=== PATIENT | female | born 1935 | race Caucasian/White ===

== ENCOUNTER 2019-11-24 12:19 | Outpatient (CLI) | payer MEDICARE, MEDICAID, SELFPAY ==
--- NOTE | 2019-11-24 12:20 | MM_ITS ---
WS: [id number] BILATERAL DIGITAL DIAGNOSTIC MAMMOGRAPHY WITH CAD CLINICAL INFORMATION: HX OF BREAST CA HISTORY: Diagnostic mammogram. History of right breast cancer. COMPARISON: TECHNIQUE: Bilateral CC and MLO views. FINDINGS: The breasts are composed of heterogeneous fibroglandular density tissue, which can limit the detectio n of small underlying mass lesions. A few stable punctate calcifications. No suspicious mass, asymmet ry, calcifications, or architectural distortion. No evidence of malignancy. MM/[place] [id number] IMPRESSION: BI-RADS: 2-Benign FOLLOW UP: 1 Year Follow-up Recommend return to annual diagnostic mammography.
== END 2019-11-24 12:20 | disposition home or self-care (01) ==
PROVIDERS: Family Provider Family Medicine; PCP Family Medicine; Visit Provider Family Medicine
DX: Z85.3 Personal history of malignant neoplasm of breast (principal)
CPT/HCPCS: 77066

== ENCOUNTER 2020-07-20 08:57 | Emergency (ER) | payer MEDICARE, MEDICAID, SELFPAY ==
[2020-07-20] VITALS (8 sets, daily range): BP systolic 123–140; BP diastolic 62–82; PULSE 82–108; RESP 15–27; TEMP 38.5; O2SAT 92–100; BMI 27.1
--- NOTE | 2020-07-20 09:06 | XRR_ITS ---
PROCEDURE INFORMATION: Exam: XR Chest, 1 View Exam date and time: 07/20/2020 9:17 AM Age: 85 years old Clinical indication: Dyspnea; Prior surgery; Surgery type: Stimulator; Additional info: Dyspnea, covid + TECHNIQUE: Imaging protocol: XR of the chest Views: 1 view. COMPARISON: CR Chest 1 [place] [id number] 06/16/2019 10:57 AM FINDINGS: Tubes, catheters and devices: A neurostimulator projects on the lower thoracic spine. Lungs: There are bilateral interstitial pulmonary infiltrates, greater on the left side. These have arisen since the old chest x-ray. Interstitial infiltrates are consistent with viral pneumonia. Pleural space: Unremarkable. No pleural effusion. No pneumothorax. Heart/Mediastinum: Unremarkable. No cardiomegaly. Bones/joints: Unremarkable. XR/XR chest 1V portable [id number] IMPRESSION: Bilateral interstitial pulmonary infiltrates greater on the left side consistent with a viral pneumonia.
[2020-07-20] MEDS: dexamethasone 4 mg/mL INJ 6 MG IVP (09:21)
--- NOTE | 2020-07-20 09:23 | W.ED.COVID ---
HPI - COVID General: Chief Complaint: COVID symptoms Stated Complaint: COVID+/PNE/Low O2 Time Seen by Provider: 07/20/20 09:06 Triage information: Has fever, cough or shortness of breath. Exposure to COVID + person last 14 days History of Present Illness: HPI Narrative: 85-year-old female reported to be Covid positive, having tested positive on 07/13, [facility] with [facility] and reported pneumonia. They started on dexamethasone and additionally they had added Levaquin but she is not tolerating that p.o. According to her paperwork [facility] the [facility] she has a full code. She was 88% on 6 L by nasal cannula at the [facility] and continued to having shortness of breath and increasing respiratory distress family asked that she be sent to the emergency room. MD complaint: known COVID positive Prior covid testing: yes, results known (July 13, 2020) Prior testing date: 07/13/20 COVID 19 common symptoms: positive fever(s), chills, cough, productive cough, dyspnea, fatigue, body aches, nasal congestion and vomiting COVID 19 other sytmptoms: positive requiring more oxygen and respiratory distress Onset (ago): day(s) Severity: severe Pertinent comorbid conditions: [facility] patient COVID Results: No Data to Display Review of Systems General: Reports: ROS unobtainable due to medical condition (Review of systems per EMS and [facility]iary report) Const: Reports: fever(s), chills, body aches and fatigue ENMT: Reports: nasal congestion Resp: Reports: dyspnea and productive cough GI: Reports: vomiting Physical Exam Const: COMMON NORMALS: no acute distress GENERAL APPEARANCE: cooperative and comfortable ORIENTATION/CONSCIOUSNESS: Yes awake, Yes oriented to person, Yes oriented to place and Yes oriented to time HENMT: COMMON NORMALS: normocephalic, atraumatic and hearing grossly normal bilaterally HEAD & SCALP: normocephalic and atraumatic Neck/C-Spine: COMMON NORMALS: no JVD Resp: AUSCULTATION: rhonchi and wheezes Cardio: COMMON NORMALS: no JVD and regular rhythm RATE: tachycardic RHYTHM: regular rhythm HEART SOUNDS: Murmur heart sound present systolic Intensity: II/ GI: COMMON NORMALS: Soft to palpation and No hepatosplenomegaly present AUSCULTATION: Yes normoactive bowel sounds PALPATION: Yes Soft to palpation, No Tenderness to palpation present (GI), No Guarding due to palpation present (GI) and Yes No hepatosplenomegaly present Extremity: COMMON NORMALS: normal to inspection, capillary refill normal, no clubbing, cyanosis or edema, no calf tenderness and no pedal edema Neuro: SENSORIUM/ORIENTATION: Yes oriented to person, Yes oriented to place and Yes oriented to time Skin: COMMON NORMALS: no rashes or lesions noted GENERAL SKIN EXAM: no rashes or lesions noted Course Vital Signs: Vital signs: Vital Signs Temperature 101.3 F H 07/20/20 08:58 Pulse Rate 82 07/20/20 14:31 Respiratory Rate 16 07/20/20 14:31 Blood Pressure 136/69 07/20/20 14:31 Pulse Oximetry 96 07/20/20 14:31 MDM - COVID MDM Narrative Medical decision making narrative: Acute viral pneumonitis secondary to COVID-19. We will transfer due to lack of available appropriate beds at our facility at this time we do not even have a bed available to isolate her with or without negative pressure. Discussed with receiving physician at [facility]. Patient transferred in stable condition on oxygen. Did confirm with her attending that the family does want her as a full code. Lab Data Result diagrams: 07/20/20 09:18 07/20/20 09:18 Labs: Lab Results 07/20/20 07/20/20 07/20/20 Range/Units 09:18 09:18 09:18 WBC 16.7 H (4.0-10.0) 10^3/uL RBC 4.48 (4.1-5.3) 10^6/uL Hgb 15.0 (11.5-15.3) g/dL Hct 45.3 (37.0-47.0) % MCV 101.1 H (81-99) fL MCH 33.5 (28.0-34.0) pg MCHC 33.1 (30.0-36.0) g/dL RDW 13.6 (12.1-15.1) % Plt Count 415 H (130-400) 10^3/cmm MPV 10.2 (7.4-10.4) fL Neut % (Auto) 88.5 % Lymph % (Auto) 8.0 % [place] % (Auto) 2.0 % Eos % (Auto) 0.0 % Baso % (Auto) 0.2 % Neut # (Auto) 14.75 H (1.8-7.7) 10^3/uL Lymph # (Auto) 1.3 (0.8-4.8) 10^3/uL [place] # (Auto) 0.3 (0.2-0.9) 10^3/uL Eos # (Auto) 0.0 (0.0-0.8) 10^3/uL Baso # (Auto) 0.0 (0.0-0.1) 10^3/uL Nucleated RBC % (auto) 0.1 % Nucleated RBCs # 0.0 /100WBC PT Cancelled INR Cancelled Fibrinogen Cancelled D-Dimer Cancelled Specimen Type Sample Site ABG pH (7.35-7.45) ABG pCO2 (35-45) mmHg ABG pO2 (80.0-100.0) mmHg ABG HCO3 (22-26) mmol/L ABG Base Excess (-2.0-2.0) mmol/L [place] Test Hematocrit (37-47) % O2 Delivery Device O2 Liters/Min % FiO2 % [place] ID Sodium 143 (136-145) mmol/L Potassium 3.5 (3.5-5.1) mmol/L Chloride 105 (98-107) mmol/L Carbon Dioxide 18 L (22-29) mmol/L Anion Gap 23.5 H (5-19) BUN 35 H (8-23) mg/dL Creatinine 0.8 (0.5-0.9) mg/dL GFR Calculation Not Reportable Glucose 140 H (65-115) mg/dL Calculated Osmolality 306 H (285-295) mOsm/kg Lactic Acid (0.5-2.2) mmol/L Calcium 9.1 (8.5-10.5) mg/dL Magnesium 2.9 H (1.7-2.3) mg/dL Total Bilirubin 0.4 (0.15-1.2) mg/dL AST 63 H (0-32) U/L ALT 36 H (0-33) U/L Alkaline Phosphatase 220 H (35-105) IU/L Lactate Dehydrogenase 738 H (135-214) U/L Creatine Kinase 161 (26-192) U/L C-Reactive Protein 251.5 H (0.0-4.9) mg/L Total Protein 7.7 (6.6-8.7) g/dL Albumin 3.8 (3.5-5.2) g/dL Globulin 3.9 (1.3-4.6) g/dL Procalcitonin 0.79 H (0-0.5) ng/mL 07/20/20 07/20/20 07/20/20 Range/Units 09:18 09:30 09:48 WBC (4.0-10.0) 10^3/uL RBC (4.1-5.3) 10^6/uL Hgb (11.5-15.3) g/dL Hct (37.0-47.0) % MCV (81-99) fL MCH (28.0-34.0) pg MCHC (30.0-36.0) g/dL RDW (12.1-15.1) % Plt Count (130-400) 10^3/cmm MPV (7.4-10.4) fL Neut % (Auto) % Lymph % (Auto) % [place] % (Auto) % Eos % (Auto) % Baso % (Auto) % Neut # (Auto) (1.8-7.7) 10^3/uL Lymph # (Auto) (0.8-4.8) 10^3/uL [place] # (Auto) (0.2-0.9) 10^3/uL Eos # (Auto) (0.0-0.8) 10^3/uL Baso # (Auto) (0.0-0.1) 10^3/uL Nucleated RBC % (auto) % Nucleated RBCs # /100WBC PT 14.90 INR 1.13 Fibrinogen 907 H D-Dimer 1.23 H Specimen Type Arterial Sample Site Brachial, left ABG pH 7.51 H (7.35-7.45) ABG pCO2 17.0 L* (35-45) mmHg ABG pO2 50.7 L (80.0-100.0) mmHg ABG HCO3 13.5 L (22-26) mmol/L ABG Base Excess -6.4 L (-2.0-2.0) mmol/L [place] Test Pos Hematocrit 46.1 (37-47) % O2 Delivery Device Nc O2 Liters/Min 34.0 % FiO2 3.5 % [place] ID Cak Sodium (136-145) mmol/L Potassium (3.5-5.1) mmol/L Chloride (98-107) mmol/L Carbon Dioxide (22-29) mmol/L Anion Gap (5-19) BUN (8-23) mg/dL Creatinine (0.5-0.9) mg/dL GFR Calculation Glucose (65-115) mg/dL Calculated Osmolality (285-295) mOsm/kg Lactic Acid 2.5 H (0.5-2.2) mmol/L Calcium (8.5-10.5) mg/dL Magnesium (1.7-2.3) mg/dL Total Bilirubin (0.15-1.2) mg/dL AST (0-32) U/L ALT (0-33) U/L Alkaline Phosphatase (35-105) IU/L Lactate Dehydrogenase (135-214) U/L Creatine Kinase (26-192) U/L C-Reactive Protein (0.0-4.9) mg/L Total Protein (6.6-8.7) g/dL Albumin (3.5-5.2) g/dL Globulin (1.3-4.6) g/dL Procalcitonin (0-0.5) ng/mL COVID Results: No Data to Display Discharge Plan Discharge Patient Disposition: Xfer Other Clinical Impression: COVID-19 virus infection, Acute exacerbation of chronic obstructive pulmonary disease, Viral pneumonitis, Respiratory failure Referrals: Fani Salinas MD [Primary Care Provider] - Interventions: ED Discharge Assessment Last Done: 07/20/20 14:31 ED Charges Last Done: 07/20/20 15:13 Discharge Date/Time: 07/20/20 15:13 Coding Level of Care Code ED Production Pattern [employer] for Chg Fwd Exam Comprehensive
[2020-07-20 09:29] LABS: Basophils % 0.2 %; Hematocrit 45.3 % (37.0-47.0); Lymphocytes # 1.3 10^3/uL (0.8-4.8); Mean Corpuscular HGB Conc 33.1 g/dL (30.0-36.0); Mean Corpuscular Hemoglobin 33.5 pg (28.0-34.0); Mean Corpuscular Volume 101.1 fL (81-99); Mean Platelet Volume 10.2 fL (7.4-10.4); Monocytes # 0.3 10^3/uL (0.2-0.9); Neutrophils # 14.75 10^3/uL (1.8-7.7); Neutrophils % 88.5 %; Nucleated Red Blood Cells % 0.1 %; Platelet Count 415 10^3/cmm (130-400); Red Blood Count 4.48 10^6/uL (4.1-5.3); Red Cell Distribution Width 13.6 % (12.1-15.1); White Blood Count 16.7 10^3/uL (4.0-10.0)
[2020-07-20 09:41] LABS: ABG PH Result 7.51 (7.35-7.45); Arterial Blood Gas Hematocrit 46.1 % (37-47); Base Excess ABG -6.4 mmol/L (-2.0-2.0); Blood Gas Allen Test Pos; Blood Gas Operator Identificat CAK; Blood Gas Sample Site Brachial, left; Blood Gas Sample Type Arterial; Fractionated Inspired Oxygen 3.5 %; HCO3 ABG 13.5 mmol/L (22-26); Oxygen Device NC; PO2 ABG 50.7 mmHg (80.0-100.0)
[2020-07-20 09:46] LABS: Lactic Sepsis W/Reflex 2.5 mmol/L (0.5-2.2)
[2020-07-20 09:56] LABS: Procalcitonin 0.79 ng/mL (0-0.5)
[2020-07-20 10:05] LABS: INR 1.13 (0.8-1.2)
[2020-07-20 10:06] LABS: Fibrinogen 907 mg/dL (174-498)
[2020-07-20] MEDS: ketorolac 30 mg/mL INJ 15 MG IVP (10:06)
[2020-07-20 10:07] LABS: Alanine Aminotransferase 36 U/L (0-33); Albumin Level 3.8 g/dL (3.5-5.2); Alkaline Phosphatase 220 IU/L (35-105); Aspartate Amino Transferase 63 U/L (0-32); Blood Urea Nitrogen 35 mg/dL (8-23); C Reactive Protein 251.5 mg/L (0.0-4.9); Calcium 9.1 mg/dL (8.5-10.5); Carbon Dioxide 18 mmol/L (22-29); Chloride 105 mmol/L (98-107); Creatine Phosphokinase 161 U/L (26-192); Creatinine Clr Calc Pharmacy 43.4016; Globulin 3.9 g/dL (1.3-4.6); Glucose 140 mg/dL (65-115); Magnesium 2.9 mg/dL (1.7-2.3); Osmolality Calculated 306 mOsm/kg (285-295); Sodium 143 mmol/L (136-145); Total Bilirubin 0.4 mg/dL (0.15-1.2); Total Protein 7.7 g/dL (6.6-8.7)
[2020-07-20 10:09] LABS: D Dimer 1.23 ug/mIFEU (0-0.59)
[2020-07-20 10:14] LABS: Anion Gap 23.5 (5-19); Lactate Dehydrogenase 738 U/L (135-214); Potassium 3.5 mmol/L (3.5-5.1)
[2020-07-20 11:12] LABS: Reflex Lactate Order REFLEX LACTIC ORDERD
--- NOTE | 2020-07-20 11:30 | PC.NURSE ---
Spoke with pt's shanthi Carreno regarding pt update. All questions answered.
== END 2020-07-20 15:13 | disposition other institution (70) ==
PROVIDERS: Emergency Provider Family Medicine; Family Provider Family Medicine; PCP Family Medicine
DX: U07.1 COVID-19 (principal); J12.89 Other viral pneumonia; J96.90 Respiratory failure, unspecified, unspecified whether with hypoxia or hypercapnia; J44.1 Chronic obstructive pulmonary disease with (acute) exacerbation; R06.02 Shortness of breath
CPT/HCPCS: 12345; 36415; 36600; 71045; 80053; 82550; 82803; 83605; 83615; 83735; 84145; 85025; 85378; 85384; 85610; 86140; 87040; 96374; 96375; 99283; 99285; J1100; J1885